=== PATIENT | male | born 1985 | race American Indian/Alaskan Native ===

== ENCOUNTER 2021-07-06 10:32 | Emergency (ER) | payer OTHER ==
[2021-07-06 11:09] VITALS: BP 155/99
== END 2021-07-06 15:00 | disposition left against medical advice (07) ==
LOC: ED 10:32
DX: R10.30 Lower abdominal pain, unspecified (principal); R42 Dizziness and giddiness; Z53.21 Procedure and treatment not carried out due to patient leaving prior to being seen by health care provider